=== PATIENT | male | born 1970 | race Caucasian/White ===

== ENCOUNTER 2025-04-30 11:05 | Day surgery (SDC) | payer OTHER ==
[~2025-04-30] VITALS: Ht 185.4 cm; Wt 126.6 kg
[~2025-04-30 11:05] MED LIST: CYCL10 PO; Divalproex Sod500 MG PO; OXYACE5T PO; Veetids 500500 MG PO
[2025-04-30] MEDS ORDERED: CeFAZolin Sodium 3,000 MG VIAL ONE (11:28)
[2025-04-30] MEDS ORDERED: FentaNYL Citrate 50 MCG/ML 2 ML Injection ONE (11:57)
[2025-04-30] MEDS ORDERED: Midazolam HCl 1MG / ML 2ML Vial ONE (12:21)
[2025-04-30] MEDS ORDERED: Bupivacaine 0.5% W/EPI 1:200000 SDV 30 ML Vial ONE (12:35)
[2025-04-30] MEDS ORDERED: Rocuronium Bromide 10 MG/ML 5ML Injection IV ONE (13:10)
--- NOTE | 2025-04-30 13:17 | NUR ---
04/30/25 1317 Christina Vargas LATE ENTRY FROM 11:45AM. PT REPORTED TO RN ARELI AND ALSO THIS RN THAT WHEN HE HAD BACK SURGERY IN APPROXIMATELY 2014 HE HAD AN ELEVATED TEMPERATURE OF 104 IMMEDIATELY AFTER SURGERY AND THAT HE REQUIRED COOLING MEASURES. PT DOES NOT RECALL EVER HEARING THE TERMINOLOGY MALIGNANT HYPERTHERMIA OR BEING ADVISED THAT WITH FUTURE SURGERIES HE NEEDS TO LET STAFF KNOW ABOUT THIS HISTORY. DR GALVEZ AND DR INGRAM NOTIFIED OF ABOVE AND DR INGRAM CAME TO ROOM TO SPEAK TO PATIENT ABOUT THIS IN MORE DETAIL. PT STATED THAT HIS BACK SURGERY WAS COMPLETED AND THAT HE WAS OUT OF THE OR AND IN POST OP CARE WHEN THE ELEVATED TEMP WAS DISCOVERED AND TREATED. PT REPORTS HE HAS NOT HAD ANY PROBLEMS DURING ANY OTHER PREVIOUS SURGERIES AND STATES THAT NO FAMILY MEMBERS HAVE EVER HAD ANY PROBLEMS WITH ANESTHESIA. DR INGRAM OKAY TO PROCEED WITH SURGERY AFTER DISCUSSION WITH PATIENT. DR INGRAM AND DR GALVEZ WERE ALSO BOTH MADE AWARE OF ELEVATED BP READINGS. PATIENT AND SIGNIFICANT OTHER WERE TALKED TO ABOUT RISKS ASSOCIATED WITH BP RUNNING THIS HIGH AND ENCOURAGED TO SEE PT'S PCP. BOTH PATIENT AND S.O. VERBALIZED THAT THEY PLAN TO TRY TO LOOK INTO ALL NATURAL METHODS FOR BP CONTROL THEY DO NOT LIKE TAKING PHARMACEUTICALS. S.O. MARJORIE STATED THAT SHE WILL OBTAIN A BP CUFF SO SHE CAN SEE WHAT HIS BP READINGS ARE AT HOME.
[2025-04-30] MEDS ORDERED: Metoclopramide HCl 5MG / ML 2ML Vial ONE (13:29)
[2025-04-30] MEDS ORDERED: Ondansetron HCl 2 MG / ML 2ML Vial ONE (13:29)
[2025-04-30] MEDS ORDERED: Sugammadex Sodium 200 MG/2ML SDV (100 MG/ML) ONE (13:46)
[2025-04-30 14:16] VITALS: BP 107/65
--- NOTE | 2025-04-30 14:29 | NUR ---
04/30/25 1429 YUKO BENEDICT AT BEDSIDE
== END 2025-04-30 15:24 | disposition home or self-care (01) ==
LOC: ORSCSDS 11:05
PROVIDERS: Orthopaedic Surgery
PROC: 0SBC4ZZ Excision of Right Knee Joint, Percutaneous Endoscopic Approach (ICD-10-PCS; principal; 2025-04-30 12:45)
DX: S83.241A Other tear of medial meniscus, current injury, right knee, initial encounter (principal); I10 Essential (primary) hypertension; F32.A Depression, unspecified; E66.9 Obesity, unspecified; Z68.36 Body mass index [BMI] 36.0-36.9, adult
CPT/HCPCS: 82947; J0166; J0690; J2250; J2405; J2704; J2765; J3010; J7120